=== PATIENT | female | born 1980 ===

== ENCOUNTER 2018-04-04 07:00 | Inpatient (IN) | payer OTHER ==
[~2018-04-04] VITALS: Ht 160 cm; Wt 3.6 kg
[2018-04-04] MEDS ORDERED: HIERRO (11:12)
[2018-04-04] MEDS ORDERED: PRENATAL TABLE1 EAC1 PO (11:12)
== END 2018-04-07 13:53 | disposition home or self-care (01) | DRG 766 ==
LOC: LDR 07:00 → O/R 04-05 05:40 → LDR 04-05 07:00 → SURG-SUITE 04-05 10:18
PROVIDERS: Specialist
PROC: 4A1HXCZ Monitoring of Products of Conception, Cardiac Rate, External Approach (ICD-10-PCS; 2018-04-05)
PROC: 10D00Z1 Extraction of Products of Conception, Low, Open Approach (ICD-10-PCS; principal; 2018-04-05 07:00)
DX: O69.1XX0 Labor and delivery complicated by cord around neck, with compression, not applicable or unspecified (principal); Z3A.39 39 weeks gestation of pregnancy; Z37.0 Single live birth; O09.523 Supervision of elderly multigravida, third trimester